=== PATIENT | female | born 1995 | race Caucasian/White ===

== ENCOUNTER 2019-05-29 17:30 | Observation (INO) | payer OTHER ==
[~2019-05-29] VITALS: Ht 157.5 cm; Wt 53.1 kg
[2019-05-29] MEDS ORDERED: PNV1TABL76 PO (17:57)
== END 2019-05-29 19:40 | disposition home or self-care (01) ==
LOC: 8 EST LDRP 17:30
PROVIDERS: ADMIT Obstetrics & Gynecology; ATTEND Obstetrics & Gynecology
DX: O62.9 Abnormality of forces of labor, unspecified (principal); Z3A.23 23 weeks gestation of pregnancy; O46.92 Antepartum hemorrhage, unspecified, second trimester
CPT/HCPCS: 76805; 99281; G0378

== ENCOUNTER 2019-06-30 04:01 | Observation (INO) | payer OTHER ==
[~2019-06-30] VITALS: Ht 157.5 cm; Wt 53.5 kg
[~2019-06-30 04:01] MED LIST: PNV1TABL76 PO
[2019-06-30] MEDS ORDERED: DEXT 5%/LACTATED RINGERS 1,000 ML IV ONE (05:15)
[2019-06-30 06:14] LABS: CLARITY URINE CLEAR (CLEAR); COLOR URINE YELLOW (YELLOW); KETONES URINE NEGATIVE (NEGATIVE); LEUKOCYTE ESTERASE URINE TRACE (NEGATIVE); NITRITE URINE NEGATIVE (NEGATIVE); OCCULT BLOOD URINE NEGATIVE (NEGATIVE); PH URINE 7.5 (4.5-8.0); PROTEIN URINE NEGATIVE (NEGATIVE); SPECIFIC GRAVITY URINE 1.007 (1.005-1.030); UROBILINOGEN URINE 0.2 E.U./dL (0.2-1.0)
[2019-06-30 06:33] LABS: *AMPHETAMINES SCREEN URINE NEGATIVE (NEGATIVE); *BARBITURATES SCREEN URINE NEGATIVE (NEGATIVE); *COCAINE SCREEN URINE NEGATIVE (NEGATIVE)
[2019-06-30 06:34] LABS: *BENZODIAZEPINES SCREEN URINE NEGATIVE (NEGATIVE); METHADONE URINE SCREEN NEGATIVE (NEGATIVE)
[2019-06-30 06:35] LABS: CANNABINOID URINE SCREEN NEGATIVE (NEGATIVE); OPIATES URINE SCREEN NEGATIVE (NEGATIVE); PHENCYCLIDINE URINE SCREEN NEGATIVE (NEGATIVE)
[2019-06-30] MEDS ORDERED: TERBUTALINE SULFATE 1MG/ML VIAL SUBCUT PRN (07:15)
[2019-06-30] MEDS ORDERED: BETAMETHASONE ACET/BETAMET 30 MG/5 ML VIAL IM SCH (07:15)
== END 2019-06-30 10:30 | disposition home or self-care (01) ==
LOC: 8 EST LDRP 04:01 → INTOOBSV 04:01 → OBSVTOIN 04:01 → 8 EST A/PP 06:07 → 8 EST LDRP 06:19
PROVIDERS: ADMIT Obstetrics & Gynecology; ATTEND Obstetrics & Gynecology
DX: O62.9 Abnormality of forces of labor, unspecified (principal); Z3A.28 28 weeks gestation of pregnancy
CPT/HCPCS: 76805; 80305; 81003; 96360; 96361; 96372; 99281; G0378; J0702; J3105